=== PATIENT | female | born 1950 | race Caucasian/White ===

== ENCOUNTER 2017-01-17 10:23 | Emergency (ER) | payer MEDICARE, OTHER | END 2017-01-17 11:15 | disposition home or self-care (01) | LOC: FER 10:23 | DX: S61.210A Laceration without foreign body of right index finger without damage to nail, initial encounter (principal); E11.9 Type 2 diabetes mellitus without complications; I10 Essential (primary) hypertension; Z88.8 Allergy status to other drugs, medicaments and biological substances; Z79.899 Other long term (current) drug therapy; Z79.82 Long term (current) use of aspirin; Z79.84 Long term (current) use of oral hypoglycemic drugs; W26.0XXA Contact with knife, initial encounter; Y92.009 Unspecified place in unspecified non-institutional (private) residence as the place of occurrence of the external cause ==